=== PATIENT | male | born 1975 | race Caucasian/White ===

== ENCOUNTER 2021-12-04 09:16 | Outpatient (CLI) | payer OTHER, BC, SELFPAY ==
--- NOTE | ~2021-12-04 | XR_ITS ---
EXAMINATION: XR nasal bones min 3V DATE: 12/04/2021 09:36 INDICATION: Nose injury. TECHNIQUE: 3 views of the nasal bones were obtained. COMPARISON: None. FINDINGS: There is leftward deviation of the nasal septum. There are fractures of the tips of the ryland al bones. IMPRESSION: 1. Fractures of the nasal bones. Reviewed, dictated and finalized at location A.
== END 2021-12-04 09:17 | disposition home or self-care (01) ==
PROVIDERS: PCP Family Medicine; Visit Provider Plastic Surgery
DX: S02.2XXA Fracture of nasal bones, initial encounter for closed fracture (principal); X58.XXXA Exposure to other specified factors, initial encounter
CPT/HCPCS: 70160

== ENCOUNTER 2025-03-31 12:46 | Emergency (ER) | payer OTHER, BC, SELFPAY ==
--- NOTE | ~2025-03-31 | XR_ITS ---
EXAMINATION: XR foot LT min 3V DATE: 03/31/2025 13:28 INDICATION: Left foot injury with swelling and bruising TECHNIQUE: Dorsoplantar, oblique and lateral views of the left foot were obtained. COMPARISON: None. FINDINGS: Bone alignment is normal. No fracture. 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 Moderate-sized plantar calcaneal spur. Add itional small enthesophytes at the calcaneal insertion of the Achilles tendon along the dorsal margin of the navicular cuneiform articulation. There are additional small enthesopathic ossicles near the tip of the medial malleolus and radial collateral ligaments at the first metatarsophalangeal and inte rphalangeal joints. Soft tissues are unremarkable. IMPRESSION: 1. Degenerative skeletal changes as detailed above. No acute osseous abnormality. Reviewed, dictated and finalized at location A. IMPRESSION: 1. Degenerative skeletal changes as detailed above. No acute osseous abnormalit y.
--- OUTSIDE RECORDS SUMMARY | 2025-03-31 12:50 | XMS_ITS | Clinical Summary ---
Author Organization [facility] Address [address] [place] [address] Care Team Providers Care Abrasive Worker Name Role Phone Luz Maria Cassidy APRN-COLLECTOR Primary Care Provider Source Comments [facility],non-owned Affiliates and Associated Physician Practices is amultiple site organization consisting of ambulatory clinics and hospital sitesin [place], [place], [place] and [place]. This disclosure is being madepursuant to the Care Everywhere program and may not contain all information available regarding this patient. Last updated 18.[facility] [employer] Allergies Active Allergy Reactions Criticality Noted Date Comments Sulfa Drugs Anaphylaxis High 06/25/2019 Medications * Be aware that medications may not be up to date on this document. Alwaysverify current medications with the patient. amphetamine-dex troamphetamine (ADDERALL) 10 MG tablet Take 10 mg by mouth once daily 2 Active UBRELVY 100 MG tablet 2 Active testosterone cypionate (DEPO-TESTOSTER ONE) 100 MG/ML injection Inject 0.75 mg into muscle every 7 days Active amphetamine-dex troamphetamine (ADDERALL) 20 MG tablet Take 20 mg by mouth once daily 2 Active ondansetron (ZOFRAN) 4 MG tablet Take 1 (one) tablet by mouth every 6 hours as needed for Nausea/Vomiting 15 tablet 2 Active acetaminophen (TYLENOL) 500 MG tablet Take 1 (one) tablet by mouth every 4 hours as needed for Fever or Pain Maximum allowable Acetaminophen amount = 4 Grams (4000 mg) / 24 hours. 30 tablet 2 Active sodium chloride (OCEAN; BABY AYR) 0.65 % nasal spray [place]field 1 (one) spray into each nostril as needed for Dry Nose 30 mL 2 Active oxyCODONE, immediate release, (ROXICODONE) 5 MG tablet Take 1 (one) tablet by mouth every 6 hours as needed for Pain 15 tablet 2 Active Additional Information Patient not taking.Reported on 05/28/2022 oxyCODONE, immediate release, (ROXICODONE) 5 MG tablet Take 1 (one) tablet by mouth every 6 hours as needed for Pain 10 tablet 2 Active Additional Information Patient not taking.Reported on 05/28/2022 sodium chloride (OCEAN; BABY AYR) 0.65 % nasal sprayIndication s:H/O nasal septoplasty [place]field 1 (one) spray into each nostril as needed for Dry Nose 30 mL 1 2 Active Misc. Devices (Face Shield Full Length/Clear) MISC Use 1 Units as needed Please obtain a clear face shield for nasal projection . 1 Each 2 Active oxyCODONE (Oxy-Ir) 5 MG capsuleIndicati ons:Closed fracture of nasal bone, initial encounter Take 1 (one) capsule by mouth every 6 hours as needed for Pain 20 capsule 3 Active ibuprofen (Advil) 200 MG capsule Take 1 (one) capsule to 3 (three) capsules by mouth every 6 hours as needed for Pain 100 capsule 3 Active acetaminophen (Tylenol) 500 MG tablet Take 2 (two) tablets by mouth every 6 hours as needed for Fever or Pain Maximum allowable Acetaminophen amount = 4 Grams (4000 mg) / 24 hours. 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 01/08/2022 Closed fracture of nasal bone with routine heali ng 01/08/2022 Attention deficit disorder (ADD) without hyperac tivity 11/08/2020 Basal cell carcinoma (BCC) o f skin of left upper eyelid including canthus 07/04/2020 Overview (03/12/2022): Added automatically from request for surgery [id number] Status post laparoscopic appendectomy 12/17/2018 Encounters Date Type Department Care Team Description 03/02/2025 2:37 AM CDT - 03/02/2025 7:23 AM CDT Emergency [facility] [address] [place] [address] Germain Stacy MD Havens, Timothy R, MD Traumatic iritis Discharge Disposition: Home or Self Care 03/02/2025 Orders Only [facility] [address] [place] [address] Oren Muse MD Facial injury, initial encounter 03/02/2025 Orders Only [facility] [address] [place] [address] Allie Rizo PA-C 03/02/2025 Ophth Exam [facility] - Ophthalmology [address] [place] [phone] Mane Coley MD 03/01/2025 Travel 03/01/2025 Telephone [facility] [address] [place] [phone] Mane Coley MD Eye Problem from Last 3 Months Family History Medical History Relation Name Comments Cancer - Other Mother pancreatic Relation Name Status Comments Mother Social History Tobacco Use Types Packs/Day Years Used Date Smoking Tobacco: Never Smokeless Tobacco: Never Alcohol Use Standard Drinks/Week Comments Yes 0 (1 standard drink = 0.6 oz pur e alcohol) occ. Sex and Gender Information Value Date Recorded Sex Assigned at Not on file Legal Sex Male 4:07 PM CDT Gender Identity Not on file Sexual Orientation Not on file Last Filed Vital Signs Vital Sign Reading Time Taken Comments Blood Pressure 150/95 03/02/2025 4:37 AM CDT Pulse 68 03/02/2025 4:38 AM CDT Temperature 36.2 C (97.2 F) 03/01/2025 11:22 PM CDT Respiratory Rate 24 03/01/2025 11:22 PM CDT Oxygen Saturation 98% 03/02/2025 4:38 AM CDT Inhaled Oxygen Concentration - - Weight 103.4 kg (228 lb) 03/01/2025 11:22 PM CDT Height 180.3 cm (5' 11) 03/01/2025 11:22 PM CDT Body Mass Index 31.8 03/01/2025 11:22 PM CDT Plan of Treatment Health Maintenance Due Date Last Done Comments COLON MONITORING 1973 COLONOSCOPY - COLON CA SCREENING 1973 CT COLONOGRAPHY - COLON CA SCREENING 1973 FIT - COLON CA SCREENING 1973 FLEX SIG - COLON CA SCREENING 1973 HIV SCREENING 1988 HEPATITIS C SCREENING 11/28/1991 DTAP/TDAP/TD VACCINES (1 - Tdap) 1992 HEPATITIS B VACCINE (1 of 3 - 19+ 3-dose series) 1992 PNEUMOCOCCAL VACCINE 50+ (1 of 1 - PCV) 12/03/2023 ZOSTER VACCINE (1 of 2) 12/03/2023 COVID-19 VACCINE (1 - season) 2024 DEPRESSION SCREENING 08/26/2024 INFLUENZA VACCINE (#1) 2025 COLOGUARD (AGES 45-75) - COLON CA SCREENING 04/03/2026 04/03/2023 Colorectal Cancer Screening 04/03/2026 SCREENING FOR DIABETES 12/10/2026 , 12/11/2023, 12/11/2023, Additional history exists LIPID TESTING 12/10/2028 12/11/2023 HIB VACCINE Aged Out No longer eligi ble based on patient's age to complete this topic HPV VACCINE Aged Out No longer eligi ble based on patient's age to complete this topic MENINGOCOCCAL (Group B) VACCINE SHARED DECISION-MAKING Aged Out No longer eligible based on patient's age to complete this topic MENINGOCOCCAL GROUPS A/C/Y/W VACCINE Aged Out No longer eligible based on patient's age to complete this topic Insurance ANTHEM Care Teams Abrasive Worker Relationship Specialty Start Date End Date Luz Maria Cassidy APRN-CATRACHO [id number] [address] [address] PCP - General Nurse Practitioner 03/02/25
--- OUTSIDE RECORDS SUMMARY | 2025-03-31 12:50 | XMS_ITS | Encounter Summary ---
Author Organization [facility] Address [address] [place] [address] Care Team Providers Care Commercial Insurance Underwriter Name Role Phone Gin Sarmiento MD Primary Care Provider [phone] Connie Mabry MD Unavailable [phone] Luz Maria Cassidy NP Unavailable [phone] Miscellaneous, Not In File Primary Care Provider Unavailable No, Physician Primary Care Provider [phone] Encounter Details Date Type Department Care Team (Late st Contact Info) Description 06/06/2020 Telephone [facility] [place] [address] Sylvester Rizo RT Social History Tobacco Use Types Packs/Day Years Used Date Smoking Tobacco: Some Days Smokeless Tobacco: Never Sex and Gender Information Value Date Recorded Sex Assigned at Not on file Legal Sex Male 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 Results in lab tab. 03/31/2020 06/21/2020 07/31/2020 3:05 AM PLATING ENGINEER documented as of this encounter Care Teams Commercial Insurance Underwriter Relationship Specialty Start Date End Date Gin Sarmiento MD [address] [place] [address] PCP - General Family Medicine 05/13/20 03/10/25 Miscellaneous, Not In File PCP - General 03/11/25 No, Physician PCP - General 03/23/25 [place] [address] [place] [address] Referring Physician Internal Medicine 11/27/21 [place] [address] [place] [address] Nurse Practitioner Nurse Practitioner 03/01/25 documented as of this encounter
--- OUTSIDE RECORDS SUMMARY | 2025-03-31 12:50 | XMS_ITS | Encounter Summary ---
Author Organization [facility] Address [address] [place] [address] Phone Care Team Providers Care Poultry Eviscerator Name Role Phone Gin Sarmiento MD Primary Care Provider [phone] Connie Mabry MD Unavailable [phone] Luz Maria Cassidy NP Unavailable [phone] Miscellaneous, Not In File Primary Care Provider Unavailable No, Physician Primary Care Provider [phone] Encounter Details Date Type Department Care Team (Late st Contact Info) Description 05/26/2020 Orders Only [facility] Scanning, Provider Social History Tobacco Use Types Packs/Day Years Used Date Smoking Tobacco: Some Days Smokeless Tobacco: Never Sex and Gender Information Value Date Recorded Sex Assigned at Not on file Legal Sex Male 12:08 AM PROBATION COUNSELOR Gender Identity Not on file Sexual Orientation Not on file documented as of this encounter Plan of Treatment Not on file documented as of this encounter Procedures Procedure Name Priority Date/Time Associated Diagnosis Comments SCAN - LABS 05/26/2020 documented in this encounter Results * SCAN - LABS (05/26/2020) us Provider Scanning Final Result documented in this encounter Visit Diagnoses Not on filedocumented in this encounter Additional Health Concerns Infection Onset Date Last Indicated Resolved Time COVID: Recovered Comment:03/31/2020 Covid 19 PCR=positive Test performed at an outside hospital. Results in lab tab. 03/31/2020 06/21/2020 07/31/2020 3:05 AM PROBATION COUNSELOR documented as of this encounter Care Teams Poultry Eviscerator Relationship Specialty Start Date End Date Gin Sarmiento MD [address] [place] [address] PCP - General Family Medicine 05/13/20 03/10/25 Miscellaneous, Not In File PCP - General 03/11/25 No, Physician PCP - General 03/23/25 [place] [address] [address] [place], [place] [id number] Referring Physician Internal Medicine 11/27/21 Luz Maria Cassidy, ABHAY [address] [place], [place] [id number] Nurse Practitioner Nurse Practitioner 03/01/25 documented as of this encounter
--- OUTSIDE RECORDS SUMMARY | 2025-03-31 12:50 | XMS_ITS | Encounter Summary ---
Author Organization [facility] Address [address] [facility] [place] [address] Care Team Providers Care Maintenance Mechanic Helper Name Role Phone Luz Maria Cassidy Primary Care Provider Encounter Details Date Type Department Care Team (Late st Contact Info) Description 03/02/2025 Ophth Exam [facility] [address] [place] [phone] Mane Coley MD [address] [facility] [place] [id number] Social History Tobacco Use Types Packs/Day Years [...] Diagnoses Not on filedocumented in this encounter Care Teams Maintenance Mechanic Helper Relationship Specialty Start Date End Date Luz Maria Cassidy APRN-CNP [address] [facility] [address] [place] [id number] PCP - General Nurse Practitioner 03/02/25 documented as of this encounter
--- OUTSIDE RECORDS SUMMARY | 2025-03-31 12:50 | XMS_ITS | Clinical Summary ---
Author Organization [facility] Address [address] [place] [address] Care Team Providers Care Dredgemaster Name Role Phone Connie Mabry MD Unavailable [phone] Luz Maria Cassidy NP Unavailable [phone] No, Physician Primary Care Provider [phone] Allergies Active Allergy Reactions Criticality Noted Date Comments Sulfa (Sulfonamide Antibiotics) Anaphylaxis High Medications testosterone cypionate (DEPO-TESTOTERO NE) 100 mg/mL injectionIndica tions:Androgen Deficiency Inject 0.75 mg into the muscle as instructed every 7 days Active UNABLE TO FIND Take 1 each by mouth daily before breakfast Med Name: [id number] Active cholecalciferol (VITAMIN D-3) 50,000 unit capsuleIndicati ons:on fridays Take 50,000 Units by mouth once a week Active multivitamin capsule Take 1 capsule by mouth daily before breakfast Active erythromycin (ILOTYCIN) ophthalmic ointment Place ointment on right eyelid incisions 3 times a day[address] Only place inside the eye for irritation. 3.5 g 3 0 Active Active Problems Problem Noted Date Diagnosed Date Basal cell carcinoma (BCC) o f skin of left upper eyelid including canthus 07/04/2020 Overview (07/04/2020): Added automatically from request for surgery [id number] Encounters Date Type Department Care Team Description 03/11/2025 Telephone [facility] Ophthalmology [address] [place] [address] Flaco Barrios MD sooner ED FU w MICKY -current appt 04/0103/11/2025 Telephone [facility] Ophthalmology [address] [place] [address] Mook Estevez MD 03/01/2025 7:10 PM CDT - 03/01/2025 9:30 PM CDT Emergency [facility] Emergency Department [address] [place] [phone] Discharge Disposition: ED Dismiss - Diverted Elsewhere 03/01/2025 Telephone [facility] Ophthalmology [address] [facility] 6th [place] [address] Mook Estevez MD from Last 3 Months Surgical History Surgery Date Site/Laterality Comments APPENDECTOMY 08/26/2018 - 08/25/2019 OTHER SURGICAL HISTORY 08/26/2019 - 08/25/2020 Right eye lid tumor removed WISDOM TOOTH EXTRACTION ESOPHAGOGASTRODUODENOSCOPY PARATHYROIDECTOMY 06/24/2020 Medical History Medical History Date Comments Brain tumor (benign) 2001 Hyperparathyroidism Testosterone deficiency in male Covid-19 positive result 03/31/2020 Basal cell carcinoma Smoker Hypercalcemia Family History Medical History Relation Name Comments Stroke Maternal Grandfather Pancreatic cancer Mother Anesthesia problems Neg Hx Relation Name Status Comments Maternal Grandfather Maternal Grandmother Brain t umor Mother Social History Tobacco Use Types Packs/Day Years Used Date Smoking Tobacco: Some Days Cigars Smokeless Tobacco: Never Alcohol Use Standard Drinks/Week Comments Yes 3 (1 standard drink = 0.6 oz pur e alcohol) Sex and Gender Information Value Date Recorded Sex Assigned at Not on file Legal Sex Male 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 Gender Identity Not on file Sexual Orientation Not on file Obstetrics History Last Filed Vital Signs Vital Sign Reading Time Taken Comments Blood Pressure 130/86 07/25/2020 5:00 PM FIELD CROP FARM WORKER Pulse 60 07/25/2020 5:00 PM FIELD CROP FARM WORKER Temperature 36.8 C (98.2 F) 07/25/2020 4:55 PM FIELD CROP FARM WORKER Respiratory Rate 14 07/25/2020 5:00 PM FIELD CROP FARM WORKER Oxygen Saturation 96% 07/25/2020 5:00 PM FIELD CROP FARM WORKER Inhaled Oxygen Concentration - - Weight 111.1 kg (245 lb) 07/25/2020 12:47 PM FIELD CROP FARM WORKER Height 180.3 cm (5' 11) 07/25/2020 12:47 PM FIELD CROP FARM WORKER Body Mass Index 34.17 07/25/2020 12:47 PM FIELD CROP FARM WORKER Plan of Treatment Health Maintenance Due Date Last Done Comments Colon Cancer Screening-Colonoscopy 1973 Depression Screening 1973 Hepatitis C Screening 1973 Prostate Cancer Screening-PSA 1973 Hepatitis B Screening 12/03/1991 Regular Well Visit/Exam 18-64 12/03/1991 Pneumococcal vaccine <65 (1 of 2 - PCV) 1992 DTaP/Tdap/Td Vaccine (1 - Tdap) 08/09/2015 5 Zoster Vaccine (1 of 2) 12/03/2023 Influenza Vaccine (#1) 2025 Insurance [employer] [facility] [employer] [facility] Care Teams Dredgemaster Relationship Specialty Start Date End Date No, Physician PCP - General 03/23/25 [place] [address] [place], [place] [id number] Referring Physician Internal Medicine 11/27/21 [place] [address] [place] [address] Nurse Practitioner Nurse Practitioner 03/01/25
[2025-03-31 12:58] VITALS: BP 138/85; PULSE 95; RESP 16; TEMP 36.8; O2SAT 98
--- NOTE | 2025-03-31 14:14 | ED_ITS ---
HPI - Extremity Injury (Lower) General Chief Complaint: Extremity Injury, Lower Stated Complaint: dropped dumbell on foot Source: patient and RN notes reviewed Mode of arrival: ambulatory Limitations: no limitations History of Present Illness HPI Narrative: 49-year-old male [facility] complaining of injury to left foot. Patient reports he was at the gym today when someone did not raccoon 85 lb dumbbell appropriately and when he went to grab another dumbbell that done well fell on his left foot. Patient reports medial distal pain to his left foot. Patient has been able to bear weight but it hurts to walk on his left foot. Patient denies any numbness, tingling or any other injuries. Patient denies any significant past medical history. Related Data Home Medications ?Medication ?Instructions ?Recorded ?Confirmed ?Last Taken ?Type No Home Medications 05/03/20 Unknown History Allergies Allergy/AdvReac Type Severity Reaction Status Date / Time Sulfa (Sulfonamide Allergy Unknown Nausea Verified 05/03/20 08:38 Antibiotics) Review of Systems 2 Review of Systems: CONSTITUTIONAL: Denies fever, chills, or sweats. EYES: Denies visual changes, redness, or discharge. ENT: Denies rhinorrhea, congestion, sore throat, or otalgia. CARDIOVASCULAR: Denies chest pain, palpitations, or edema. RESPIRATORY: Denies cough or dyspnea. GASTROINTESTINAL: Denies abdominal pain, nausea, vomiting, or diarrhea. GENITOURINARY: Denies dysuria or hematuria. SKIN: Denies rash, wound, or itching. MUSCULOSKELETAL: Denies back pain, joint pain, or myalgia. Positive for left foot injury and swelling NEUROLOGIC: Denies headache, numbness, or weakness. PSYCHIATRIC: Denies anxiety or depression. All other systems reviewed are negative, except as documented in HPI. PMFSH Family History Family History Grandparent Cerebrovascular accident Mother Family history of pancreatic cancer Social History Social History Smoking status: Never smoker Alcohol intake: current Comments At the time of my signature, I reviewed and agree with the nursing past medical, surgical, social, and family history. There is no relevant family history pertinent to the patient complaint. Exam Narrative: GENERAL: This is a well-nourished, well-developed adult, in no apparent distress. They are non ill-appearing, nontoxic appearing. HEAD: normocephalic, atraumatic. EYES: Sclera clear/white. Vision is grossly intact. Conjunctiva normal. Extraocular movement intact. EARS: External ears normal Hearing grossly intact. NOSE: External nose normal THROAT: Mucous membranes moist NECK: Neck supple CARDIOVASCULAR: Regular rate and rhythm RESPIRATORY: Respiratory rate normal, respiratory effort nonlabored, no respira tory distress NEURO: awake, alert, and oriented to person, place and time. There were no obvious focal neurologic abnormalities. EXTREMITIES: Left foot: No obvious deformity. Medial dorsal surface of the distal foot with swelling and ecchymosis. It is tender throughout. Normal dorsiflexion and plantar flexion. Capillary refill less than 3 seconds. Left pedal Pulse 2 +palpable. Normal sensation. Neurovascular status intact distal injury. Patient is able to wiggle his toes. BACK: Nontender without deformity. Course Course Emergency Course: Portions of this record may have been created with voice recognition software Vital Signs Vital signs: Vital Signs Temperature 98.2 F 03/31/25 12:58 Pulse Rate 95 03/31/25 12:58 Respiratory Rate 16 03/31/25 12:58 Blood Pressure 138/85 03/31/25 12:58 Pulse Oximetry 98 03/31/25 12:58 Oxygen Delivery Room Air 03/31/25 12:58 Temperature 98.2 F 03/31/25 12:58 Pulse Rate 95 03/31/25 12:58 Respiratory Rate 16 03/31/25 12:58 Blood Pressure 138/85 03/31/25 12:58 Pulse Oximetry 98 03/31/25 12:58 Oxygen Delivery Room Air 03/31/25 12:58 Reviewed MDM - Extremity Injury (Lower) MDM Narrative Medical decision making narrative: X-ray of left foot is negative for any fracture or acute findings. Incidental finding of arthritis changes. Patient likely has crush injury of left foot. Patient given Jae wrap, offered crutches and postop shoe and he declined. Discussed physical exam findings. Advised supportive measures and signs/symptoms to go to the ER. Pt is appropriate for outpt treatment and f/u. Differential Diagnosis Differential diagnosis: Likely other (Foot fracture, toe fracture, foot sprain, crush injury) Imaging Data Radiologist's impression: ITS Impressions Foot X-Ray 03/31/25 13:53 IMPRESSION: 1. Degenerative skeletal changes as detailed above. No acute osseous abn ormality. Critical Care Time Critical Care Time Critical Care Time: No Discharge Plan Discharge Clinical Impression: Crush injury of left foot Qualifiers: Encounter type: initial encounter Qualified Code(s): S97.82XA - Crushing injury of left foot, initial encounter Patient Disposition: Home Condition: Stable Instructions: Crush Injury (ED) Additional Instructions: The x-ray of your left foot was negative for any fractures or acute findings. Rest and elevate the leg; bear weight as tolerated Apply ice 15-20 minute intervals several times a day Keep it wrapped with JAE Motrin 600mg -800mg every 6 to 8 hours, alternate with Tylenol 1000mg every 6 to 8 hours as needed Follow up with your primary care provider or orthopedist as needed in 1-2 weeks especially if pain persists after 2 weeks. Patient Language: Chinese Prescriptions: No Action No Home Medications Follow-up/Referrals: Ange,Luz Maira Luna APRN [Primary Care Provider] - Bryce Boo MD [Physician] - Time of Disposition: 14:13
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
--- OUTSIDE RECORDS SUMMARY | 2025-03-31 14:24 | XMS_ITS | Clinical Summary ---
Author Organization [facility] Address [address] [place] [address] Care Team Providers Care Grommet Machine Operator Name Role Phone Connie Mabry MD Unavailable [phone] Luz Maria Cassidy NP Unavailable [phone] No, Physician Primary Care Provider [phone] Allergies Active Allergy Reactions Criticality Noted Date [...] (07/04/2020): Added automatically from request for surgery [id number] Encounters Date Type Department Care Team Description 03/11/2025 Telephone [facility] Ophthalmology [address] [place] [address] Flaco Barrios MD sooner ED FU w MICKY -current appt 04/0103/11/2025 Telephone [facility] Ophthalmology [address] [place] [address] Mook Estevez MD 03/01/2025 7:10 PM CDT - 03/01/2025 9:30 PM CDT Emergency [facility] Emergency Department [address] [place] [phone] Discharge Disposition: ED Dismiss - Diverted Elsewhere 03/01/2025 Telephone [facility] Ophthalmology [address] [facility] 6th [place] [address] Mook Estevez MD from Last [...] on file Legal Sex Male 12:08 AM QUARTZ ORIENTATOR Gender Identity Not on file Sexual Orientation Not on file Obstetrics History Last Filed Vital Signs Vital Sign Reading Time Taken Comments Blood Pressure 130/86 07/25/2020 5:00 PM QUARTZ ORIENTATOR Pulse 60 07/25/2020 5:00 PM QUARTZ ORIENTATOR Temperature 36.8 C (98.2 F) 07/25/2020 4:55 PM QUARTZ ORIENTATOR Respiratory Rate 14 07/25/2020 5:00 PM QUARTZ ORIENTATOR Oxygen Saturation 96% 07/25/2020 5:00 PM QUARTZ ORIENTATOR Inhaled Oxygen Concentration - - Weight 111.1 kg (245 lb) 07/25/2020 12:47 PM QUARTZ ORIENTATOR Height 180.3 cm (5' 11) 07/25/2020 12:47 PM QUARTZ ORIENTATOR Body Mass Index 34.17 07/25/2020 12:47 PM QUARTZ ORIENTATOR Plan of Treatment Health Maintenance Due Date Last Done Comments Colon Cancer Screening-Colonoscopy 1975 Depression Screening 1975 Hepatitis C Screening 1973 Prostate Cancer Screening-PSA 1973 Hepatitis B Screening 12/03/1991 Regular Well Visit/Exam 18-64 12/03/1991 Pneumococcal vaccine <65 (1 of 2 - PCV) 1992 DTaP/Tdap/Td Vaccine (1 - Tdap) 08/09/2015 5 Zoster Vaccine (1 of 2) 12/03/2023 Influenza Vaccine (#1) 2025 Insurance [employer] OPEN ACCESS [facility] [facility] Care Teams Grommet Machine Operator Relationship Specialty Start Date End Date No, Physician PCP - General 03/23/25 [place] [address] [place], [place] [id number] Referring Physician Internal Medicine 11/27/21 [place] [address] [place] [address] Nurse Practitioner Nurse Practitioner 03/01/25
--- OUTSIDE RECORDS SUMMARY | 2025-03-31 14:24 | XMS_ITS | Encounter Summary ---
Author Organization [facility] Address [address] [place] [address] Care Team Providers Care Pollution Control Technician Name Role Phone Luz Maria Cassidy APRN Primary Care Provider [phone] Encounter Details Date Type Department Care Team (Late Contact Info) Description 10/28/2023 [employer] Message Enc [facility] [address] [place] [address] Nandini, [facility] Provider Due for appt Social History Tobacco Use Types Packs/Day Years [...] Date Recorded Patient Health Questionnaire-2 Score 0 03/04/2023 Sex and Gender Information Value Date Recorded Sex Assigned at Male 03/01/2025 5:14 PM CDT Legal Sex Male 7:36 PM CDT Gender Identity Not on file Sexual Orientation Not on file documented as of this encounter Plan of Treatment Upcoming Encounters Date Type Department Care Team (Late Contact Info) Description 08/16/2025 9:00 AM ASSOCIATE RESEARCH SCIENTIST Office Visit [facility] [address] [place] [address] Luz Maria Cassidy APRN [address] [place] [address] documented as of this encounter Visit Diagnoses Not on filedocumented in this encounter Additional Health Concerns Assessment Noted Time PHQ-9 Depression Total Score: 0 09/18/19 23 9:58 AM ASSOCIATE RESEARCH SCIENTIST documented as of this encounter Care Teams Pollution Control Technician Relationship Specialty Start Date End Date Luz Maria Cassidy APRN [address] [place] [address] PCP - General NURSE PRACTITIONER 01/16/23 documented as of this encounter
--- OUTSIDE RECORDS SUMMARY | 2025-03-31 14:24 | XMS_ITS | Clinical Summary ---
Author Organization [facility] Address [address] [facility] [place] [address] Care Team Providers Care Instrumentation Specialist Name Role Phone Luz Maria Cassidy APRN-OLD COIN DEALER Primary Care Provider Source Comments [facility],non-owned Affiliates and Associated Physician Practices is amultiple site organization consisting of ambulatory clinics and hospital sitesin [place], [place] and [place]. This disclosure is being madepursuant to the Care Everywhere program and may not contain all information available regarding this patient. Last updated 18.[facility] Allergies Active Allergy Reactions Criticality Noted Date [...] (OCEAN; BABY AYR) 0.65 % nasal spray [place] 1 (one) spray into each nostril as [...] 0.65 % nasal sprayIndication s:H/O nasal septoplasty [place] 1 (one) spray into each nostril as [...] (03/12/2022): Added automatically from request for surgery [id number] Status post laparoscopic appendectomy 12/17/2018 Encounters Date Type Department Care Team Description 03/02/2025 2:37 AM CDT - 03/02/2025 7:23 AM CDT Emergency [facility] [address] [place] [address] Germain Stacy MD Havens, Timothy R, MD Traumatic iritis Discharge Disposition: Home or Self Care 03/02/2025 Orders Only [facility] [address] [place] [address] Oren Muse MD Facial injury, initial encounter 03/02/2025 Orders Only [facility] [address] [place] [address] Allie Rizo PA-C 03/02/2025 Ophth Exam [facility] - Ophthalmology [address] [place] [phone] Mane Coley MD 03/01/2025 Travel 03/01/2025 Telephone [facility] - Ophthalmology [address] [place] [phone] Mane Coley MD Eye Problem from Last [...] complete this topic Insurance [employer] Care Teams Instrumentation Specialist Relationship Specialty Start Date End Date Luz Maria Cassidy APRN-CATRACHO [address] [address] [address] PCP - General Nurse Practitioner 03/02/25
--- OUTSIDE RECORDS SUMMARY | 2025-03-31 14:24 | XMS_ITS | Encounter Summary ---
Author Organization [facility] Address [address] [facility] [place] [address] Care Team Providers Care Research Engineer Marine Equipment Name Role Phone Luz Maria Cassidy Primary Care Provider Encounter Details Date Type Department Care Team (Late st Contact Info) Description 03/02/2025 Ophth Exam [facility] - Ophthalmology [address] [place] [phone] Mane Coley MD [address] [facility] [place] [phone] Social History Tobacco Use Types Packs/Day Years [...] on filedocumented in this encounter Care Teams Research Engineer Marine Equipment Relationship Specialty Start Date End Date Luz Maria Cassidy APRN-CNP [address] [facility] [address] [place] [address] PCP - General Nurse Practitioner 03/02/25 documented as of this encounter
--- OUTSIDE RECORDS SUMMARY | 2025-03-31 14:24 | XMS_ITS | Encounter Summary ---
Author Organization [facility] Address [address] [place] [address] Phone Care Team Providers Care Land Use Planner Name Role Phone Gin Sarmiento MD Primary Care Provider [phone] Connie Mabry MD Unavailable [phone] Luz Maria Cassidy NP Unavailable [phone] Miscellaneous, Not In File Primary Care Provider Unavailable No, Physician Primary Care Provider [phone] Encounter Details Date Type Department Care Team (Late st Contact Info) Description 05/26/2020 Orders Only [facility] Scanning, Provider Social History Tobacco Use Types Packs/Day Years Used Date Smoking Tobacco: Some Days Smokeless Tobacco: Never Sex and Gender Information Value Date Recorded Sex Assigned at Not on file Legal Sex Male 12:08 AM COOK HELPER PRESERVES Gender Identity Not on file Sexual Orientation [...] lab tab. 03/31/2020 06/21/2020 07/31/2020 3:05 AM COOK HELPER PRESERVES documented as of this encounter Care Teams Land Use Planner Relationship Specialty Start Date End Date Gin Sarmiento MD [address] [place] [address] PCP - General Family Medicine 05/13/20 03/10/25 Miscellaneous, Not In File PCP - General 03/11/25 No, Physician PCP - General 03/23/25 [place] [address] [place], [place] [id number] Referring Physician Internal Medicine 11/27/21 Luz Maria Cassidy, ABHAY [address] [place], [place] [id number] Nurse Practitioner Nurse Practitioner 03/01/25 documented as of this encounter
--- OUTSIDE RECORDS SUMMARY | 2025-03-31 14:24 | XMS_ITS | Encounter Summary ---
Author Organization [facility] Address [address] [place] [address] Care Team Providers Care Environmental Projects Advisor Name Role Phone Apolinar Sarmiento MD Primary Care Provider [phone] Conine Mabry MD Primary Care Provider [phone] Riley Cornejo MD Primary Care Provider [phone] Luz Maria Cassidy APRN Primary Care Provider [phone] Encounter Details Date Type Department Care Team (Late st Contact Info) Description 12/09/2018 [facility] - [address] [place] [address] Scanned, Documents Social History Tobacco Use Types Packs/Day Years Used Date Smoking Tobacco: Never Assessed Sex and Gender Information Value Date Recorded Sex Assigned at Male 03/01/2025 5:14 PM CDT Legal Sex Male 7:36 PM CDT Gender Identity Not on file Sexual Orientation Not on file documented as of this encounter Progress Notes * Zscanned, Documents - 12/09/2018 12:00 AM CDT RAGHAV PALOMARES ORDERING MD: ACCT: [id number] ADMIT/SERVICE DATE: 12/09/18 DISCHARGE DATE: 12/10/18 : 1975 PT TYPE: DIS IN SEX: M ORD SITE: [facility] REPORT OF PATHOLOGICAL EXAMINATION DATE OF SURGERY: 12/09/2018 SURGICAL PATH NO: [id number] DATE OBTAINED: 12/09/2018 DATE RETURNED: 12/10/2018 CHART DOCUMENT PATHOLOGICAL DIAGNOSIS: I. APPENDIX -ACUTE APPENDICITIS WITH PERIAPPENDICITIS SPECIMEN: APPENDIX GROSS EXAMINATION: THE SPECIMEN IS RECEIVED IN FORMALIN LABELED WITH PATIENT'S NAME AND APPENDIX. THE SPECIMEN CONSISTS OF AN APPENDIX MEASURING 8 CM X 1 CM IN DIAMETER. THE SEROSAL SURFACE IS PURPLE/SCHUSTER/CAMPBELL AND SLIGHTLY CONGESTED. SECTIONING REVEALS A DARK BROWN HARDENED FECAL MATERIAL AND A LIQUID RED BROWN FLUID. THE WALL OF THE APPENDIX MEASURES 0.2 CM IN GREATEST THICKNESS. INDUSTRIAL ROBOTICS MECHANIC SECTIONS ARE SUBMITTED IN A SINGLE CASSETTE. TD/ELVIN 12/09/2018 12/09/2018 02:42 P MICROSCOPIC EXAMINATION: SECTIONS OF THE APPENDIX SHOWS HEMORRHAGE, ULCERATION, AND NECROSIS OF THE MUCOSA. THERE IS A DENSE ACUTE AND CHRONIC INFLAMMATION INVOLVING THE MUCOSA, THE MUSCULAR WALL, AND THE SEROSA. ELECTRONICALLY SIGNED BY NILES COCHRAN MD 12/10/2018 01:00 P DT: UNIQUE:12/10/2018 DOC NO: [id number] documented in this encounter Plan of Treatment Upcoming Encounters Date Type Department Care Team (Late st Contact Info) Description 08/16/2025 9:00 AM TREKKING GUIDE Office Visit [facility] Family [facility] Internal Medicine [address] [address] Luz Maria Cassidy APRN [address] [place] [address] [place] [address] documented as of this encounter Visit Diagnoses Not on filedocumented in this encounter Additional Health Concerns Infection Onset Date Last Indicated Resolved Time COVID-19 Rule Out 08/05/2023 08/05/2023 08/05/2023 6:00 PM TREKKING GUIDE Influenza - Seasonal 08/05/2023 08/05/2023 023 12:32 AM TREKKING GUIDE documented as of this encounter Care Teams Environmental Projects Advisor Relationship Specialty Start Date End Date Apolinar Sarmiento MD [address] [place] [address] PCP - General FAMILY PRACTICE 12/17/18 08/07/20 Connie Mabry MD [address] [place] [address] PCP - General INTERNAL MEDICINE 08/08/20 11/29/22 [place] [address] [place] [address] PCP - General FAMILY PRACTICE 11/30/22 01/15/23 Luz Maria Cassidy APRN [address] [place] [address] PCP - General NURSE PRACTITIONER 01/16/23 documented as of this encounter
--- OUTSIDE RECORDS SUMMARY | 2025-03-31 14:24 | XMS_ITS | Encounter Summary ---
Author Organization [facility] Address [address] [place] [address] Care Team Providers Care Or Rn Name Role Phone Gin Sarmiento MD Primary Care Provider [phone] Connie Mabry MD Unavailable [phone] Luz Maria Cassidy NP Unavailable [phone] Miscellaneous, Not In File Primary Care Provider Unavailable No, Physician Primary Care Provider [phone] Encounter Details Date Type Department Care Team (Late st Contact Info) Description 06/06/2020 Telephone [facility] [place] [address] Sylvester Rizo RT Social History Tobacco Use Types Packs/Day Years Used Date Smoking Tobacco: Some Days Smokeless Tobacco: Never Sex and Gender Information Value Date Recorded Sex Assigned at Not on file Legal Sex Male 12:08 AM WELFARE ANALYST Gender Identity Not on file Sexual Orientation [...] lab tab. 03/31/2020 06/21/2020 07/31/2020 3:05 AM WELFARE ANALYST documented as of this encounter Care Teams Or Rn Relationship Specialty Start Date End Date Gin Sarmiento MD [address] [place] [address] PCP - General Family Medicine 05/13/20 03/10/25 Miscellaneous, Not In File PCP - General 03/11/25 No, Physician PCP - General 03/23/25 [place] [address] [place] [address] Referring Physician Internal Medicine 11/27/21 [place] [address] [place] [address] Nurse Practitioner Nurse Practitioner 03/01/25 documented as of this encounter
== END 2025-03-31 14:30 | disposition home or self-care (01) ==
LOC: ANHED 14:18
PROVIDERS: PCP Registered Nurse
DX: S97.82XA Crushing injury of left foot, initial encounter (principal); W20.8XXA Other cause of strike by thrown, projected or falling object, initial encounter
CPT/HCPCS: 73630; 99283